=== PATIENT | male | born 2000 | race Two or more races ===

== ENCOUNTER 2019-02-05 19:19 | Emergency (ER) | payer SELFPAY ==
[~2019-02-05] VITALS: Ht 182.9 cm; Wt 72.6 kg
[~2019-02-05 19:19] MED LIST: HYDR-3164 PO; IBUP-1060 PO
[2019-02-05 20:39] LABS: BASO % 0 % (0-3); EOS # 0.1 x10^3/uL (0.0-0.7); EOS % 1 % (0-3); HEMATOCRIT 45.8 % (39.0-53.0); HEMOGLOBIN 15.9 g/dL (13.0-17.5); LYMPH # 1.1 x10^3/uL (1.0-4.8); LYMPH % 14 % (24-48); MEAN CORPUSCULAR HEMOGLOBIN 30 pg (25-35); MEAN CORPUSCULAR HGB CONC 35 g/dL (31-37); MEAN CORPUSCULAR VOLUME 85 fL (79-100); MONO # 0.6 x10^3/uL (0.0-1.1); MONO % 8 % (0-9); NEUT # 5.9 x10^3/uL (1.8-7.7); NEUT % 77 % (31-73); PLATELET COUNT 301 x10^3/uL (140-400); RED BLOOD COUNT 5.37 x10^6/uL (4.30-5.70); RED CELL DISTRIBUTION WIDTH 13.7 % (11.5-14.5); WHITE BLOOD COUNT 7.7 x10^3/uL (4.0-11.0)
[2019-02-05 20:42] LABS: BILIRUBIN,URINE NEGATIVE (NEG); CLARITY,URINE CLEAR; COLOR,URINE AMBER; NITRITE,URINE NEGATIVE (NEG); PH,URINE 5.5; PROTEIN,URINE 30 mg/dL (NEG-TRACE); UROBILINOGEN,URINE 0.2 mg/dL (0.2 mg/dL)
[2019-02-05] MEDS ORDERED: KETOROLAC 15 MG/ML VIAL. IV ONE (20:45)
[2019-02-05] MEDS ORDERED: ONDANSETRON PF 4 MG/2 ML VIAL. IV ONE (20:45)
[2019-02-05] MEDS ORDERED: IV NORMAL SALINE 1000ML BAG 1,000 ML IV ONE (20:45)
[2019-02-05 20:52] LABS: CALCIUM 9.1 mg/dL (8.5-10.1); GFR 95.3; POTASSIUM 4.1 mmol/L (3.5-5.1)
[2019-02-05 20:54] LABS: BACTERIA,URINE 0 /HPF (0-FEW); HYALINE CASTS, URINE OCCASIONAL /HPF; RBC,URINE 0 /HPF (0-2); SQUAMOUS EPITHELIAL CELL,UR OCC /LPF; WBC,URINE OCC /HPF (0-4)
[2019-02-05 20:58] LABS: ALBUMIN 4.6 g/dL (3.4-5.0); TOTAL BILIRUBIN 0.7 mg/dL (0.2-1.0)
[2019-02-05] MEDS ORDERED: ONDA4TAB7 PO (21:07)
[2019-02-05 21:20] VITALS: BP 112/63
--- NOTE | 2019-02-05 21:40 | PHYS DOC ---
Past Medical History Past Medical History: No Pertinent History Past Surgical History: No Surgical History Alcohol Use: None Drug Use: None Adult General Chief Complaint Chief Complaint: ABDOMINAL PAIN HPI HPI Patient is a 18 year old male with diffuse crampy abdominal pain associated with multiple greater than 10 episodes of nonbloody diarrhea for the last 2 days he feels nauseous no vomiting no sick contacts in whole travel no antibiotics in the diarrhea no fever Review of Systems Review of Systems Constitutional: Denies fever or chills [] Eyes: Denies change in visual acuity, redness, or eye pain [] HENT: Denies nasal congestion or sore throat [] Cardiovascular: No additional information not addressed in HPI [] Musculoskeletal: Denies back pain or joint pain [] All other systems were reviewed and found to be within normal limits, except as documented in this note. Current Medications Current Medications Current Medications Medications (Trade) Dose Ordered Sig/Claire Start Time Stop Time Status Last Admin Dose Admin Ketorolac Tromethamine (Toradol 15mg Vial) 15 mg 1X ONCE 02/05/19 20:45 02/05/19 20:46 DC 02/05/19 20:41 15 MG Ondansetron HCl (Zofran) 4 mg 1X ONCE 02/05/19 20:45 02/05/19 20:46 DC 02/05/19 20:42 4 MG Sodium Chloride 1,000 ml @ 1,000 mls/hr 1X ONCE 02/05/19 20:45 02/05/19 21:44 02/05/19 20:42 1,000 MLS/HR Allergies Allergies Allergies Coded Allergies Type Severity Reaction Last Updated Verified No Known Drug Allergies 01/08/16 No Physical Exam Physical Exam Constitutional: Well developed, well nourished, no acute distress, non-toxic appearance. [] HENT: Normocephalic, atraumatic, bilateral external ears normal, oropharynx moist, no oral exudates, nose normal. [] Eyes: PERRLA, EOMI, conjunctiva normal, no discharge. [] Neck: Normal range of motion, no tenderness, supple, no stridor. [] Pulmonary: Normal respiratory effort no increased work of breathing no obvious chest wall trauma Abdomen: Bowel sounds normal, soft, no tenderness, no masses, no pulsatile masses. [] Skin: Warm, dry, no erythema, no rash. [] Back: No tenderness, no CVA tenderness. [] Extremities: No tenderness, no cyanosis, no clubbing, ROM intact, no edema. [] Neurologic: Alert and oriented X 3, normal motor function, normal sensory function, no focal deficits noted. [] Psychologic: Affect normal, judgement normal, mood normal. [] Current Patient Data Vital Signs Vital Signs Date Time Temp Pulse Resp B/P (MAP) Pulse Ox O2 Delivery O2 Flow Rate FiO2 02/05/19 19:45 99.3 96 20 135/75 (95) 98 Room Air 99.3 Lab Values Laboratory Tests Test 02/05/19 20:00 02/05/19 20:25 Urine Color Alexa Urine Clarity Clear Urine pH 5.5 Urine Specific [place] >=1.030 Urine Protein 30 mg/dL (NEG-TRACE) Urine Glucose (UA) Negative mg/dL (NEG) Urine Ketones (Stick) Negative mg/dL (NEG) Urine Blood Negative (NEG) Urine Nitrite Negative (NEG) Urine Bilirubin Negative (NEG) Urine Urobilinogen Dipstick 0.2 mg/dL (0.2 mg/dL) Urine Leukocyte Esterase Negative (NEG) Urine RBC 0 /HPF (0-2) Urine WBC Occ /HPF (0-4) Urine Squamous Epithelial Cells Occ /LPF Urine Bacteria 0 /HPF (0-FEW) Urine Hyaline Casts Occasional /HPF Urine Mucus Mod /LPF White Blood Count 7.7 x10^3/uL (4.0-11.0) Red Blood Count 5.37 x10^6/uL (4.30-5.70) Hemoglobin 15.9 g/dL (13.0-17.5) Hematocrit 45.8 % (39.0-53.0) Mean Corpuscular Volume 85 fL (79-100) Mean Corpuscular Hemoglobin 30 pg (25-35) Mean Corpuscular Hemoglobin Concent 35 g/dL (31-37) Red Cell Distribution Width 13.7 % (11.5-14.5) Platelet Count 301 x10^3/uL (140-400) Neutrophils (%) (Auto) 77 % (31-73) H Lymphocytes (%) (Auto) 14 % (24-48) L Monocytes (%) (Auto) 8 % (0-9) Eosinophils (%) (Auto) 1 % (0-3) Basophils (%) (Auto) 0 % (0-3) Neutrophils # (Auto) 5.9 x10^3/uL (1.8-7.7) Lymphocytes # (Auto) 1.1 x10^3/uL (1.0-4.8) Monocytes # (Auto) 0.6 x10^3/uL (0.0-1.1) Eosinophils # (Auto) 0.1 x10^3/uL (0.0-0.7) Basophils # (Auto) 0.0 x10^3/uL (0.0-0.2) Sodium Level 142 mmol/L (136-145) Potassium Level 4.1 mmol/L (3.5-5.1) Chloride Level 104 mmol/L (98-107) Carbon Dioxide Level 23 mmol/L (21-32) Anion Gap 15 (6-14) H Blood Urea Nitrogen 16 mg/dL (8-26) Creatinine 1.0 mg/dL (0.7-1.3) Estimated GFR (Cockcroft-Gault) 95.3 BUN/Creatinine Ratio 16 (6-20) Glucose Level 91 mg/dL (70-99) Calcium Level 9.1 mg/dL (8.5-10.1) Total Bilirubin 0.7 mg/dL (0.2-1.0) Aspartate Amino Transferase (AST) 23 U/L (15-37) Alanine Aminotransferase (ALT) 27 U/L (16-63) Alkaline Phosphatase 59 U/L (46-116) Total Protein 9.0 g/dL (6.4-8.2) H Albumin 4.6 g/dL (3.4-5.0) Albumin/Globulin Ratio 1.0 (1.0-1.7) Lipase 114 U/L (73-393) Laboratory Tests 02/05/19 20:25 Laboratory Tests 02/05/19 20:25 EKG EKG [] Radiology/Procedures Radiology/Procedures [] Course & Med Decision Making Course & Med Decision Making Pertinent Labs and Imaging studies reviewed. (See chart for details) []Labs are reassuring abdominal examination was completely nontender patient is having frequent episodes of diarrhea suspect viral etiology I ordered a stool culture in case he would have any stool in the emergency room. After IV fluids and medication as noted above he was feeling better return precautions discussed he voiced understanding instructions specifically there was no right lower quadrant tenderness at all Dragon Disclaimer Dragon Disclaimer This electronic medical record was generated, in whole or in part, using a voice recognition dictation system. Departure Departure Impression: Primary Impression: Nausea vomiting and diarrhea Disposition: HOME, SELF-CARE Condition: STABLE Patient Instructions: Nausea and Vomiting, [id number] Scripts Ondansetron Hcl (ZOFRAN) 4 Mg Tablet 4 MG PO PRN TID PRN for NAUSEA/VOMITING, #15 nausea/vomiting Prov: ROSA HSU MD 02/05/19 ROSA HSU MD Feb 05, 2019 21:40
== END 2019-02-05 21:40 | disposition home or self-care (01) ==
LOC: ER 19:19
DX: R11.2 Nausea with vomiting, unspecified (principal); R19.7 Diarrhea, unspecified; R10.84 Generalized abdominal pain
CPT/HCPCS: 36415; 80053; 81001; 83690; 85025; 87045; 96361; 96374; 96375; 99284; J1885; J2405; J7030

== ENCOUNTER 2021-11-21 10:18 | Emergency (ER) | payer OTHER ==
[~2021-11-21] VITALS: Ht 180.3 cm; Wt 100.0 kg
[~2021-11-21 10:18] MED LIST changes: +ONDA4TAB7 PO
[2021-11-21 11:06] LABS: BACTERIA,URINE FEW /HPF (0-FEW); RBC,URINE >40 /HPF (0-2); WBC,URINE OCC /HPF (0-4)
--- NOTE | 2021-11-21 11:06 | PHYS DOC ---
Past Medical History Past Medical History: No Pertinent History Past Surgical History: No Surgical History Smoking Status: Never Smoker Alcohol Use: None Drug Use: None General Adult EDM: Chief Complaint: ABDOMINAL PAIN HPI: HPI: Patient is a 21-year-old male who presents today with abdominal pain. Patient s tates the pain started around 530 this morning mostly epigastric and left-sided abdominal pain, patient states he did defecate this morning and he said that did not do anything to relieve the pain. Patient also states he has been having some heartburn and burping as well as nausea and 1 episode of vomiting. Patient denies fever and chills. Patient denies painful urination or frequency in urination. Patient states that last evening he ate pizza, he denies any alcohol or drug use. Review of Systems: Review of Systems: Constitutional: Denies fever or chills. [] Eyes: Denies change in visual acuity. [] HENT: Denies nasal congestion or sore throat. [] Respiratory: Denies cough or shortness of breath. [] Cardiovascular: Denies chest pain or edema. [] GI: abdominal pain, nausea, vomiting denies bloody stools or diarrhea. [] : Denies dysuria. [] Musculoskeletal: Denies back pain or joint pain. [] Integument: Denies rash. [] Neurologic: Denies headache, focal weakness or sensory changes. [] Endocrine: Denies polyuria or polydipsia. [] Lymphatic: Denies swollen glands. [] Psychiatric: Denies depression or anxiety. [] Heart Score: C/O Chest Pain: No Risk Factors: Risk Factors: DM, Current or recent (<one month) smoker, HTN, HLP, family history of CAD, obesity. Risk Scores: Score 0 - 3: 2.5% MACE over next 6 weeks - Discharge Home Score 4 - 6: 20.3% MACE over next 6 weeks - Admit for Clinical Observation Score 7 - 10: 72.7% MACE over next 6 weeks - Early Invasive Strategies Allergies: Allergies: Allergies Coded Allergies Type Severity Reaction Last Updated Verified No Known Drug Allergies 01/08/16 No Physical Exam: PE: Constitutional: Well developed, well nourished, mild distress, non-toxic appearance. [] HENT: Normocephalic, atraumatic, bilateral external ears normal, oropharynx moist, no oral exudates, nose normal. [] Eyes: PERRLA, EOMI, conjunctiva normal, no discharge. [] Neck: Normal range of motion, no tenderness, supple, no stridor. [] Cardiovascular:Heart rate regular rhythm, no murmur [] Lungs & Thorax: Bilateral breath sounds clear to auscultation [] Abdomen: Abdomen is soft with tenderness located in the epigastric and left upper quadrant of the abdomen, bowel sounds are hypoactive, no pulsatile masses or masses noted patient is somewhat guarded on the left side of the abdomen. Skin: Warm, dry, no erythema, no rash. [] Back: No tenderness, no CVA tenderness. [] Extremities: No tenderness, no cyanosis, no clubbing, ROM intact, no edema. [] Neurologic: Alert and oriented X 3, normal motor function, normal sensory function, no focal deficits noted. [] Psychologic: Affect normal, judgement normal, mood normal. [] Current Patient Data: Labs: Laboratory Tests Test 11/21/21 10:33 11/21/21 11:25 Urine Collection Type Unknown Urine Color (Auto) Light yellow Urine Turbidity Clear Urine pH (Auto) 6.0 Urine Specific [place] 1.021 Urine Protein (Auto) Negative mg/dL Urine Glucose (Auto)(UA) Negative mg/dL Urine Ketones (Auto) Negative mg/dL Urine Blood (Auto) Large Urine Nitrite Negative Urine Bilirubin (Auto) Negative Urine Urobilinogen (Auto) Normal mg/dL Urine Leukocyte Esterase (Auto) Negative Urine RBC >40 /HPF Urine WBC Occ /HPF Urine Bacteria Few /HPF Urine Mucus Mod /LPF White Blood Count 17.1 x10^3/uL Red Blood Count 4.71 x10^6/uL Hemoglobin 13.9 g/dL Hematocrit 40.1 % Mean Corpuscular Volume 85 fL Mean Corpuscular Hemoglobin 30 pg Mean Corpuscular Hemoglobin Concent 35 g/dL Red Cell Distribution Width 13.7 % Platelet Count 286 x10^3/uL Neutrophils (%) (Auto) 91 % Lymphocytes (%) (Auto) 5 % Monocytes (%) (Auto) 4 % Eosinophils (%) (Auto) 0 % Basophils (%) (Auto) 0 % Neutrophils # (Auto) 15.5 x10^3/uL Lymphocytes # (Auto) 0.8 x10^3/uL Monocytes # (Auto) 0.7 x10^3/uL Eosinophils # (Auto) 0.0 x10^3/uL Basophils # (Auto) 0.0 x10^3/uL Segmented Neutrophils % 88 % Band Neutrophils % 3 % Lymphocytes % 5 % Monocytes % 4 % Platelet Estimate Adequate Sodium Level 144 mmol/L Potassium Level 4.2 mmol/L Chloride Level 107 mmol/L Carbon Dioxide Level 26 mmol/L Anion Gap 11 Blood Urea Nitrogen 20 mg/dL Creatinine 1.0 mg/dL Estimated GFR (Cockcroft-Gault) 92.6 BUN/Creatinine Ratio 20 Glucose Level 125 mg/dL Calcium Level 9.5 mg/dL Total Bilirubin 0.8 mg/dL Aspartate Amino Transf (AST/SGOT) 22 U/L Alanine Aminotransferase (ALT/SGPT) 27 U/L Alkaline Phosphatase 52 U/L Total Protein 8.2 g/dL Albumin 4.4 g/dL Albumin/Globulin Ratio 1.2 Lipase 68 U/L Current Medications Medications (Trade) Dose Ordered Sig/Claire Route PRN Reason Start Time Stop Time Status Last Admin Dose Admin Sodium Chloride 1,000 ml @ 999 mls/hr 1X ONCE IV 11/21/21 11:15 11/21/21 12:15 DC 11/21/21 11:35 Ondansetron HCl (Zofran) 4 mg 1X ONCE IVP 11/21/21 11:15 11/21/21 11:16 DC 11/21/21 11:35 Ketorolac Tromethamine (Toradol 30mg Vial) 30 mg 1X ONCE IVP 11/21/21 11:15 11/21/21 11:16 DC 11/21/21 11:35 Vital Signs: Vital Signs Date Time Temp Pulse Resp B/P (MAP) Pulse Ox O2 Delivery O2 Flow Rate FiO2 11/21/21 12:32 64 19 129/78 (95) 98 Room Air 11/21/21 12:02 68 124/80 (95) 97 Room Air 11/21/21 11:32 132/84 (100) Room Air 11/21/21 11:11 139/88 (105) Room Air 11/21/21 10:45 98.1 71 16 130/94 (106) 99 Room Air 98.1 Vital Signs Date Time Temp Pulse Resp B/P (MAP) Pulse Ox O2 Delivery O2 Flow Rate FiO2 11/21/21 10:45 98.1 71 16 130/94 (106) 99 Room Air 98.1 EKG: EKG: [] Radiology/Procedures: Radiology/Procedures: REASON: epigastric pain, left flank pain. PROCEDURE: CT ABDOMEN PELVIS WO CONTRAST CT ABDOMEN+PELVIS WO History: Epigastric pain. Left flank pain. Comparison: None. Technique: Noncontrast CT of the abdomen and pelvis. Findings: The lung bases are clear. Liver, gallbladder, pancreas, spleen, and adrenal glands are unremarkable. There is mild left hydronephrosis. A few punctate left lower pole nephroliths measure 2-3 mm. There is mild left hydroureter with a distal left ureteral stone measuring 5 mm. The bladder and prostate are unremarkable. The right kidney is unremarkable. The stomach, small bowel and, appendix and colon are unremarkable. No intra- abdominal free air or free fluid. No adenopathy. The unenhanced vasculature is within normal limits. Soft tissues and osseous structures are unremarkable. Impression: 1. Distal left ureteral stone measuring 5 mm with mild left hydronephroureter. Left lower pole punctate nephrolithiasis. ------ Exposure: One or more of the following individualized dose reduction techniques were utilized for this examination: 1. Automated exposure control 2. Adjustment of the mA and/or kV according to patient size 3. Use of iterative reconstruction technique. Electronically signed by: Kofi Lerner MD (11/21/2021 11:49 AM) [id number] Course & Med Decision Making: Course & Med Decision Making Pertinent Labs and Imaging studies reviewed. (See chart for details) 1210 reassessment of patient shows his pain is a 2 out of 10 since his pain has resolved and he is feeling much better. I reviewed radiological and laboratory results with patient and did inform him that he had a 5 mm stone on the left side, he then stated that his mother has a history of kidney stones. Patient is informed that he will need to follow-up with the urologist to establish care for further follow-up of his renal stones. Patient will be given a prescription for Flomax to be taken for 7 days as well as a prescription for hydrocodone to be taken as needed for pain. Patient verbalizes understanding for the need for follow-up and is also encouraged to return here to the emergency department should his pain not be relieved by his pain medication that was given to him. Mai Disclaimer: Mai Disclaimer: This electronic medical record was generated, in whole or in part, using a voice recognition dictation system. Departure Departure Impression: Primary Impression: Renal calculus, left Disposition: 01 HOME / SELF CARE / HOMELESS Condition: STABLE Referrals: NO PCP (PCP) NANCY ROTH DO Patient Instructions: Kidney Stones Additional Instructions: Increase by mouth fluid Flomax 0.4 mg take 1 tablet at night for 7 days Strain all urine for the next 48 to 72 hours to watch for any renal stones if 1 obtain stable and take to your urology appointment with you Hydrocodone take 1 to 2 tablets every 6 hours as needed for severe pain, use with caution may cause drowsiness and constipation Motrin 600 mg take 1 tablet every 6 hours as needed for mild to moderate pain, take with food may cause stomach upset if taken on an empty stomach Zofran take 1 tablet every 6-8 hours as needed for nausea, use with caution may cause constipation Follow-up with Dr. Roth who is the urologist on-call today for further evaluation and management of your renal stones Return to the emergency department should you have increased pain that is not relieved by your pain medication, you are unable to keep down by mouth medications due to nausea and vomiting, or you develop chest pain. [facility] [address] [place] [address] [facility] [address] [place] [address] [facility] [address] [facility] [place] [address] [facility] [address] [place] [address] [facility] [address] [place] [address] [facility] [address] [place] [address] [facility] [address] [place] [address] [facility] [address] [place] [address] [facility] [address] [place] [address] [facility] [address] [place] [address] Scripts Hydrocodone/Acetaminophen (Hydrocodone-Acetamin 5-325 mg) 1 Each Tablet 1 EACH PO PRN Q6HRS PRN for ABDOMINAL PAIN, #20 TAB Prov: NICOLE RAMIREZ APRN 11/21/21 Ondansetron (ONDANSETRON ODT) 4 Mg Tab.rapdis 1 TAB PO PRN Q6-8HRS, #16 TAB Prov: NICOLE RAMIREZ [employer] 11/21/21 Tamsulosin Hcl (FLOMAX) 0.4 Mg Cap.er.24h 1 CAP PO HS, #7 CAP Prov: NICOLE RAMIREZ APRN 11/21/21 Ibuprofen (IBUPROFEN) 600 Mg Tablet 600 MG PO PRN Q6HRS PRN for INFLAMMATION, #30 TAB Prov: NICOLE RAMIREZ APRN 11/21/21 NICOLE RAMIREZ APRN November 21, 2021 11:06
[2021-11-21] MEDS ORDERED: KETOROLAC 30 MG/ML VIAL. IVP ONE (11:15)
[2021-11-21] MEDS ORDERED: IV NORMAL SALINE 1000ML BAG 1,000 ML IV ONE (11:15)
[2021-11-21] MEDS ORDERED: ONDANSETRON PF 4 MG/2 ML VIAL. IVP ONE (11:15)
[2021-11-21 11:33] LABS: BASO % 0 % (0-3); EOS % 0 % (0-3); HEMATOCRIT 40.1 % (39.0-53.0); HEMOGLOBIN 13.9 g/dL (13.0-17.5); LYMPH # 0.8 x10^3/uL (1.0-4.8); LYMPH % 5 % (24-48); MEAN CORPUSCULAR HEMOGLOBIN 30 pg (25-35); MEAN CORPUSCULAR HGB CONC 35 g/dL (31-37); MEAN CORPUSCULAR VOLUME 85 fL (79-100); MONO # 0.7 x10^3/uL (0.0-1.1); MONO % 4 % (0-9); NEUT # 15.5 x10^3/uL (1.8-7.7); NEUT % 91 % (31-73); PLATELET COUNT 286 x10^3/uL (140-400); RED BLOOD COUNT 4.71 x10^6/uL (4.30-5.70); RED CELL DISTRIBUTION WIDTH 13.7 % (11.5-14.5); WHITE BLOOD COUNT 17.1 x10^3/uL (4.0-11.0)
[2021-11-21 11:44] LABS: CALCIUM 9.5 mg/dL (8.5-10.1); GFR 92.6; POTASSIUM 4.2 mmol/L (3.5-5.1)
[2021-11-21 11:50] LABS: ALBUMIN 4.4 g/dL (3.4-5.0); ALBUMIN/GLOBULIN RATIO 1.2 (1.0-1.7); TOTAL BILIRUBIN 0.8 mg/dL (0.2-1.0); TOTAL PROTEIN 8.2 g/dL (6.4-8.2)
[2021-11-21 12:04] LABS: % BANDS 3 % (0-9); % LYMPHS 5 % (24-48); % MONOS 4 % (0-10); % SEGS 88 % (35-66)
[2021-11-21 12:05] LABS: PLT ESTIMATE ADEQUATE (ADEQUATE)
[2021-11-21] MEDS ORDERED: IBUP-1007 PO (12:29)
[2021-11-21] MEDS ORDERED: ONDA4TAB12 PO (12:29)
[2021-11-21] MEDS ORDERED: HYDR-2759 PO (12:29)
[2021-11-21] MEDS ORDERED: TAMS0.4C97 PO (12:29)
[2021-11-21 12:32] VITALS: BP 129/78
--- NOTE | 2021-11-21 15:59 | RAD ---
CT ABDOMEN+PELVIS WO History: Epigastric pain. Left flank pain. Comparison: None. Technique: Noncontrast CT of the abdomen and pelvis. Findings: The lung bases are clear. Liver, gallbladder, pancreas, spleen, and adrenal glands are unremarkable. There is mild left hydronephrosis. A few punctate left lower pole nephroliths measure 2-3 mm. There i s mild left hydroureter with a distal left ureteral stone measuring 5 mm. The bladder and prostate ar e unremarkable. The right kidney is unremarkable. The stomach, small bowel and, appendix and colon are unremarkable. No intra-abdominal free air or ct e fluid. No adenopathy. The unenhanced vasculature is within normal limits. Soft tissues and osseous structures are unremarkable. Impression: 1. Distal left ureteral stone measuring 5 mm with mild left hydronephroureter. Left lower pole punct ate nephrolithiasis. ------ Exposure: One or more of the following individualized dose reduction techniques were utilized for thi s examination: 1. Automated exposure control 2. Adjustment of the mA and/or kV according to patient size 3. Use of iterative reconstruction technique. Electronically signed by: Kofi Lerner MD (11/21/2021 11:49 AM) [id number]
== END 2021-11-21 13:07 | disposition home or self-care (01) ==
LOC: ER 10:18
DX: N13.2 Hydronephrosis with renal and ureteral calculous obstruction (principal)
CPT/HCPCS: 36415; 74176; 80053; 81001; 83690; 85007; 85025; 96361; 96374; 96375; 99285; J1885; J2405; J7030